=== PATIENT | male | born 1945 | race Caucasian/White ===

== ENCOUNTER → 2016-11-11 | Outpatient (CLI) | payer OTHER ==
--- NOTE | 2016-11-11 17:45 | CT ---
CT Chest Without Contrast Indication: Borderline dilated ascending aorta and noncalcified pulmonary nodules. Follow up. Technique: Standard CT of the chest utilizing 5 mm collimated slices through the thorax. Dose reducti on techniques were utilized. Comparison: CT chest without contrast dated August 13, 2014, and CT calcium score dated August. Findings: The borderline aneurysmal, 4 cm, ascending aorta is unchanged in caliber. The descending th oracic aorta is normal in caliber. Trace calcified mural plaque along the aortic arch and thoracic ao rta at the diaphragmatic hiatus are unchanged. Minimal calcified plaque is present along the left ant erior descending coronary artery. The 4 mm noncalcified right lower lobe pulmonary nodule in the lateral segment right lower lobe on im age 89 is unchanged since August 2013. No new noncalcified pulmonary nodules, groundglass lesions or spiculated lesions have developed. The numerous benign calcified granulomas scattered throughout the right and left lung and right hilum are unchanged. No enlarged lymph node or mass has developed throughout the axilla, mediastinum, pulmonary tammy or im aged portion of the upper abdomen. The heart size is normal. No pericardial or pleural effusion. No b one lesions. Impression: 1. Borderline aneurysmal ascending aorta, 4 cm, is unchanged since 2012. Recommend continued intermit tent surveillance of the aorta. 2. Benign 4 mm right lower lobe pulmonary nodule is unchanged since August 2013. No further surveil ken is necessary of the pulmonary nodule. 3. Benign old granulomatous disease unchanged.
== END ==
LOC: FIMAGING 11:04
PROVIDERS: ATTEND Family Medicine
DX: I71.2 Thoracic aortic aneurysm, without rupture (principal); R91.1 Solitary pulmonary nodule; H02.403 Unspecified ptosis of bilateral eyelids; R97.20 Elevated prostate specific antigen [PSA]

== ENCOUNTER → 2018-06-21 | Outpatient (CLI) | payer OTHER | LOC: BMCIMAGING 08:45 | PROVIDERS: ATTEND Orthopaedic Surgery Hand Surgery | DX: S62.211A Bennett's fracture, right hand, initial encounter for closed fracture (principal); X58.XXXA Exposure to other specified factors, initial encounter ==